=== PATIENT | female | born 1990 | race Caucasian/White ===

== ENCOUNTER 2017-04-18 21:39 | Emergency (ER) | payer SELFPAY ==
[2017-04-18 21:49] VITALS: BP 127/63
--- NOTE | 2017-04-18 22:28 | EDM.PDOC ---
ED HPI GENERAL MEDICAL PROBLEM - General Chief Complaint: Laceration Stated Complaint: CUT RING FINGER ON LEFT HAND Time Seen by Provider: 04/18/17 22:20 Source of Information: Reports: Patient, Family History Limitations: Reports: No Limitations - History of Present Illness INITIAL COMMENTS - FREE TEXT/NARRATIVE: 26-year-old female presents to the ED with an acute injury to the tip of her right fourth finger. She was working at home and slipped with the knife and suffered an avulsion to the tip of her right fourth finger. Her tetanus toxoid is up-to-date at probably given at age 20 when she entered college in [place]. The knife was otherwise clean. No other injuries occurred. Onset: Today Onset Date: 04/18/17 Onset Time: 21:05 Duration: Minutes: Location: Reports: Upper Extremity, Right (Right fourth fingertip) Quality: Reports: Burning, Stabbing Severity: Moderate Improves with: Reports: None Worsens with: Reports: None Context: Reports: Activity (Was slicing vegetables.) Associated Symptoms: Reports: No Other Symptoms Treatments RODEO CLOWN: Reports: Other (see below) Left 4-Ring finger Pain Score (Numeric/FACES): 5 - Related Data Allergies Allergy/AdvReac Type Severity Reaction Status Date / Time No Known Allergies Allergy Verified 04/18/17 21:49 Home Meds: Home Meds . [No Known Home Meds] 04/18/17 [History] Past Medical History - Past Health History Medical/Surgical History: Denies Medical/Surgical History Social & Family History - Family History Family Medical History: Noncontributory - Tobacco Use Smoking Status *Q: Never Smoker - Recreational Drug Use Recreational Drug Use: No ED ROS GENERAL - Review of Systems Review Of Systems: See Below Constitutional: Reports: No Symptoms HEENT: Reports: No Symptoms Respiratory: Reports: No Symptoms Cardiovascular: Reports: No Symptoms Endocrine: Reports: No Symptoms GI/Abdominal: Reports: No Symptoms : Reports: No Symptoms Musculoskeletal: Reports: No Symptoms Skin: Reports: No Symptoms Neurological: Reports: No Symptoms Psychiatric: Reports: No Symptoms Hematologic/Lymphatic: Reports: No Symptoms Immunologic: Reports: No Symptoms ED EXAM, SKIN/RASH Exam: See Below Exam Limited By: No Limitations General Appearance: Alert, WD/WN, Anxious, Mild Distress Extremities: Other (Examination was limited to the right hand. Patient suffered an avulsion injury to the tip of the right fourth finger measuring approximately 6 mm in diameter. Wound is mildly bleeding. There is nothing really to suture since its the tip of the finger without injury to the fingernail.) Neurological: Alert, Oriented, CN II-XII Intact, Normal Cognition Psychiatric: Normal Affect, Normal Mood Skin: Warm, Dry, Intact, Normal Color, No Rash Course - Vital Signs Last Recorded V/S: Last Vital Signs Temp 36.6 C 04/18/17 21:47 Pulse Resp 16 04/18/17 21:47 BP 127/63 04/18/17 21:47 Pulse Ox 96 04/18/17 21:47 - Radiology Interpretation Free Text/Narrative:: 26-year-old female presented to the ED with an acute injury to the tip of her left fourth finger. She has suffered an avulsion injury when she slipped with the knife. Proximal be 6 mm circumferential tissue is missing from the tip of the finger. Wound will be treated conservatively with topical antibiotic after cleanse. Finger cot dressing for 2 days then Bandage until healed. Daily cleanse with water and soap and topical antibiotic ointment. Departure - Departure Time of Disposition: 22:21 Disposition: Home, Self-Care 01 Condition: Fair Clinical Impression: Avulsion of skin of finger Qualifiers: Encounter type: initial encounter Qualified Code(s): S61.209A - Unspecified open wound of unspecified finger without damage to nail, initial encounter - Discharge Information Referrals: PCP,None [Primary Care Provider] - Forms: ED Department Discharge Additional Instructions: Evaluation the emergency room tonight in regards to a cut to the tip of your right fourth finger. This is resultant in an avulsion injury in terms of 5 mm to 6 mm of the tissue has been completely excised by the knife slipped. These continue to bleed and therefore require pressure dressing. Is nothing really to suture to improve healing etc. The initial dressing that was placed in the ED should stay on for the next 2 days. Then the wound is to be daily cleanse with soap and water. Showering is okay then apply topical antibiotic such as bacitracin or Polysporin to the wound and cover with a bandage as we described called a "cap" Bandage to keep the wound dry and clean. Not at work or when the wound is not at risk of getting dirty it bandage may remain off as the wound tends to heal better when it's open to the air. Expect the wound to heal over the next 14-20 days. Of course return to medical care if any signs of infection occur such as redness swelling or obvious pus formation. This is unlikely to occur as long as you use the bacitracin or Polysporin daily.
== END 2017-04-18 22:45 | disposition home or self-care (01) ==
LOC: JD.ED 21:39
DX: S61.304A Unspecified open wound of right ring finger with damage to nail, initial encounter (principal); W26.0XXA Contact with knife, initial encounter
CPT/HCPCS: 99282; 99283